=== PATIENT | male | born 1980 | race Caucasian/White ===

== ENCOUNTER 2016-09-28 10:45 | Emergency (ER) | payer MEDICAID ==
[2016-09-28 10:47] VITALS: BP 143/90
== END 2016-09-28 13:01 | disposition home or self-care (01) ==
LOC: ED 10:45
DX: S81.012A Laceration without foreign body, left knee, initial encounter (principal); W31.89XA Contact with other specified machinery, initial encounter; Y93.89 Activity, other specified; Y92.89 Other specified places as the place of occurrence of the external cause; Y99.8 Other external cause status
CPT/HCPCS: 90715; J2001

== ENCOUNTER 2016-10-08 19:35 | Emergency (ER) | payer MEDICAID ==
[~2016-10-08] VITALS: Ht 180.3 cm; Wt 78.0 kg
[2016-10-08 19:56] VITALS: BP 134/77
== END 2016-10-08 21:08 | disposition home or self-care (01) ==
LOC: ED 19:35
DX: S81.012D Laceration without foreign body, left knee, subsequent encounter (principal); X58.XXXD Exposure to other specified factors, subsequent encounter; Y92.89 Other specified places as the place of occurrence of the external cause; Y99.8 Other external cause status